=== PATIENT | female | born 1965 | race Caucasian/White ===

== ENCOUNTER 2017-06-23 00:32 | Emergency (ER) | payer OTHER ==
[2017-06-23 00:57] VITALS: BP 138/89; PULSE 98; TEMP 97.6; BMI 58.3
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
--- NOTE | 2017-06-28 11:44 | EKG ---
Test Reason : Blood Pressure : / mmHG Vent. Rate : 098 BPM Atrial Rate : 098 BPM P-R Int : 150 ms QRS Dur : 096 ms QT Int : 374 ms P-R-T Axes : 044 -21 074 degrees QTc Int : 477 ms NORMAL SINUS RHYTHM INCOMPLETE RIGHT BUNDLE BRANCH BLOCK CANNOT RULE OUT ANTERIOR INFARCT , AGE UNDETERMINED ABNORMAL ECG WHEN COMPARED WITH ECG OF 06-FEB-2013 08:28, NO SIGNIFICANT CHANGE WAS FOUND Confirmed by JAMES BACK, RIAN ([id number]) on 06/28/2017 11:44:25 AM Referred By: Confirmed By:RIAN RAMIREZ MD
== END 2017-06-23 04:44 | disposition home or self-care (01) ==
LOC: JER 00:32
DX: T58.01XA Toxic effect of carbon monoxide from motor vehicle exhaust, accidental (unintentional), initial encounter (principal); R06.02 Shortness of breath
CPT/HCPCS: 71045-TC-FY; 93005; 93010; 99282-25